=== PATIENT | female | born 1970 | race Caucasian/White ===

== ENCOUNTER → 2024-11-01 13:14 | Outpatient (CLI) | payer OTHER, SELFPAY ==
[2024-11-01 13:44] LABS: Add Manual Diff / Slide Review NO; Basophils Absolute Auto 0 /uL (0-100); Basophils Percent Auto 0.7 % (0-2); Eosinophils Absolute Auto 100 /uL (0-450); Hematocrit 42.7 % (36-46); Hemoglobin 14.1 g/dL (12.0-16.0); Lymphocytes Absolute Auto 2200 /uL (1100-4500); Lymphocytes Percent Auto 43.3 % (25-40); Mean Corpuscular HGB Conc 33.1 % (30-36); Mean Corpuscular Hemoglobin 29.7 PG (26-34); Mean Corpuscular Volume 89.7 fL (80-100); Monocytes Absolute Auto 400 /uL (0-900); Monocytes Percent Auto 7.3 % (3-14); Neutrophils Absolute Auto 2400 /uL (1500-7000); Neutrophils Percent Auto 46.7 % (50-75); Platelet Count 239 X10^3/uL (150-400); Red Blood Cell Count 4.76 X10^6/uL (4.0-5.2); Red Cell Distribution Width 13.8 % (11.6-14.8); White Blood Cell Count 5.2 X10^3/uL (4.5-11.0)
[2024-11-01 14:28] LABS: Alanine Aminotransferase 32 IU/L (<35); Albumin 4.5 g/dL (3.5-5.0); Albumin Globulin Ratio 1.8 (1.0-2.8); Alkaline Phosphatase 118 U/L (38-126); Aspartate Aminotransferase 31 IU/L (14-36); BUN Creatinine Ratio 18.8 (6-22); Bilirubin Total 0.7 mg/dL (0.2-1.3); Blood Urea Nitrogen 16 mg/dL (7-17); Calcium 9.1 mg/dL (8.4-10.2); Carbon Dioxide 25 mmol/L (22-32); Chloride 106 mmol/L (98-107); Cholesterol 157 mg/dL (140-199); Estimated Glomerular Filt Rate > 60 mL/min (>60); Globulin 2.5 g/dL (1.7-4.1); Glucose 157 mg/dL (70-99); HDL Cholesterol 43 mg/dL (40-60); HEMOLYSIS < 15 (0-50); LDL Cholesterol Calculated 98 mg/dL (<100); Sodium 140 mmol/L (137-145); Triglycerides 82 mg/dL (35-150)
[2024-11-01 14:43] LABS: Creatinine Urine Random 74.21 mg/dL
[2024-11-01 14:45] LABS: Free T3, Triiodothyronine Free 2.55 pg/mL (2.77-5.27); Free T4, Direct Thyroxine 0.79 ng/dL (0.78-2.19)
[2024-11-01 14:51] LABS: Microalbumin Urine Random 4.6 mg/dL (0-1.6)
[2024-11-01 14:58] LABS: Thyroid Stimulating Hormone 11.1 uIU/mL (0.47-4.68)
== END ==
LOC: LAB 13:16
PROVIDERS: Referring Provider Student in an Organized Health Care Education/Training Program; Visit Provider Student in an Organized Health Care Education/Training Program
DX: E11.9 Type 2 diabetes mellitus without complications (principal); Z79.899 Other long term (current) drug therapy
CPT/HCPCS: 36415; 80053; 80061; 82043; 82570; 83036; 84439; 84443; 84481; 85025

== ENCOUNTER → 2025-01-13 18:40 | Outpatient (CLI) | payer OTHER, SELFPAY ==
--- NOTE | 2025-01-13 18:41 | DI.MRI.S_ITS ---
PROCEDURE: MR LUMBAR SPINE WO CON INDICATIONS: Numbness and tingling of lower extremitities, urinary incont TECHNIQUE: Noncontrast sagittal T1 spin echo and T2 fast echo, sagittal STIR, and T2 fast spin echo through the lumbar spine. In cases with scoliosis, additional coronal T2 fast spin echo may be performed. COMPARISON: None. FINDINGS: Image quality: Excellent. Alignment and Curvature: Trace retrolisthesis L4-L5. Bone Marrow: Marrow is of normal overall signal. No acute vertebral body compression fractures. Spinal Cord: Conus medullaris terminates at the L1 level. Visualized cord demonstrates normal signal and size. Paraspinous Soft Tissues: No paravertebral masses. Discs: Scattered disc desiccation moderate L4-5. T12-L1: No disc bulge, spinal stenosis or foraminal narrowing. L1-L2: No disc bulge, spinal stenosis or foraminal narrowing. Minimal epidural lipomatosis. L2-L3: Minimal disc without spinal stenosis. Minimal left foraminal narrowing. Minimal epidural lipomatosis. L3-L4: Minimal disc bulge with minimal canal narrowing. Minimal to mild left foraminal narrowing. Minimal epidural lipomatosis. L4-L5: Mild disc bulge with [id number] spinal stenosis. [id number] left and mild right foraminal narrowing with facet and ligamentum flavum hypertrophy. L5-S1: No disc bulge or spinal stenosis. Mild bilateral foraminal narrowing. IMPRESSION: Scattered early degenerative changes with foraminal narrowing most notable at L4-5 as above. Dictated by: Adilene St M.D. on 01/13/2025 at 20:18 Approved by: Adilene St M.D. on 01/13/2025 at 20:22
== END ==
LOC: MRI 18:41
PROVIDERS: Family Provider Student in an Organized Health Care Education/Training Program; PCP Student in an Organized Health Care Education/Training Program; Referring Provider Student in an Organized Health Care Education/Training Program; Visit Provider Student in an Organized Health Care Education/Training Program
DX: M47.816 Spondylosis without myelopathy or radiculopathy, lumbar region (principal); M48.061 Spinal stenosis, lumbar region without neurogenic claudication; R20.2 Paresthesia of skin; R32 Unspecified urinary incontinence
CPT/HCPCS: 72148

== ENCOUNTER 2025-03-10 07:30 | Outpatient (RCR) | payer OTHER, SELFPAY ==
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
--- NOTE | 2025-01-06 17:22 | PT.OPPOC ---
Physical, Occupational & Speech Therapy At [facility] Current Diagnoses Low back pain, unspecified (01/06/25) Visit Care Team Role Provider Type Tameka Abdi MD Attending Provider Physician Family Provider Primary Care Provider Referring Provider Specialty: Family Practice Obstetrics Address: [address] [place] [address], [id number] Email: [email or web address] Plan Of Care PT-OP-T Assessment and Plan Start: 01/06/25 13:10 Freq: Status: Active Protocol: Document 01/06/25 13:11 BL (Rec: 01/06/25 13:46 BL Laptop) Physical Therapy Assessment Rehab Potential Rehabilitation Good Potential Evaluation Complexity Number of Personal 1-2 Factors/ Comorbidities Number of Body 3 Systems Impaired Clinical Evolving Presentation at Evaluation Impairments Impairments Activity Tolerance,Balance,Functional Activities, Functional Mobility,Gait,Pain,Posture,ROM,Sensation, Soft Tissue Mobility,Strength,Transfers Goals Three Senior Database Programmer Goal (LTG) Pt will demo decreased pain when going up and down steps to 2/10 or better by DC for improved functional mobility. Two Detention Goal (LTG) Pt will demo improved hip extension strength to 4+/5 by DC for improved functional stability with ADLs by DC. One Short Term Goal (STG Pt will be ind with HEP within 2 visits in order to ) progress toward group home therapy goals outside of therapy sessions. Detention Goal (LTG) Pt will demo improved Oswestry score to 30% disability or better by DC for improved quality of life. Assessment Summary Assessment Pt presents to the clinic this date with long standing low back pain, pt reports she had a fall about a year ago and since the pain has been more sever. Pt demos decreased hip and core strength this date as well as decreased lumbar mobility, L hip stiffness through all ranges. Pt demos positive slump test. Pt will likely benefit from skilled Physical Therapy intervention for strength and endurance training to improve functional mobility. Due to concerns for possible bladder involvement with changes noted over the past and no reports of recent imaging, pt recommended to contact PCP for additional imaging to clear possible neural involvement or spinal concerns. Physical Therapy Plan Frequency and Duration Frequency of 2x/Week Treatment Duration of 12 treatment (weeks) Plan of Care Start 01/06/25 Date Plan of Care End 03/31/25 Date Therapeutic Interventions Therapeutic Balance Training,Coordination Training,Gait Training, Interventions Home Exercise Program,Joint Mobilizations,Manual Therapy,Neuromuscular Re-education,Orthotic/Prosthetic Management,Patient/Caregiver Education,Self-Care/Home Management,Sensory Integration,Soft Tissue Mobilization ,Taping,Therapeutic Activities,Therapeutic Exercises Modalities Cold Pack/Ice Massage,Electric Stimulation,Hot Packs, Infrared Therapy,Iontophoresis,Traction- Mechanical, Ultrasound Next Visit Focus/Plan Next Note Type Treatment Note Next Visit Plan Advance HEP for LE strength and stability, core stability, manual therapy for lumbar tissue mobility. Plan of Care Dates Plan of Care Start Date 01/06/25 Plan of Care End Date 03/31/25 Electronically Signed by: Juni Pickering, PT 01/06/25 6500 If you are in agreement with this Plan of Care, please return a signed and dated copy. I have reviewed this Plan of Care and certify that the skilled therapy services above are required to meet the patient?s needs. Physician Signature Date Printed Name and Credentials Clinical Instructor Signature Printed Name and Credentials
--- NOTE | 2025-01-12 18:04 | PT.OTN ---
Current Diagnoses Low back pain, unspecified (01/12/25) Physical Therapy Treatment Note PT-OP-A Visit Information Start: 01/06/25 13:10 Freq: Status: Active Protocol: Document 01/12/25 17:01 BL (Rec: 01/12/25 18:04 BL Laptop) Out-Patient Physical Therapy Visit Information Visit Information Visit Type Treatment Note Visit Start Time 17:00 Visit Stop Time 17:40 Visit Number (2) 2/10 (PN by 02/06/25) Number of LIEUTENANT SHIFT SUPERVISOR Visits 0 PT-OP-C Subjective Start: 01/06/25 13:10 Freq: Status: Active Protocol: Document 01/12/25 17:01 BL (Rec: 01/12/25 18:04 BL Laptop) OP-PT Subjective Patient Comments Patient Comments Pt presents to the clinic this date and reports she is feeling pretty sore today, reports she was sick earlier in the week and spent a good part of her day in her bed due to this pain. PT-OP-D Balance Start: 01/06/25 13:10 Freq: Status: Active Protocol: Document 01/06/25 13:11 BL (Rec: 01/06/25 13:46 BL Laptop) Balance Tests Single Limb Standing Single Limb- Right 10 Single Limb- Left 8 PT-OP-H Neuro Start: 01/06/25 13:10 Freq: Status: Active Protocol: Document 01/06/25 13:11 BL (Rec: 01/06/25 13:46 BL Laptop) Sensation Evaluation Comments Summary Comments Pt reports occasional numbness tonja but can be worse on L side. unsure if this is from her back or diabetes. Coordination Evaluation Comments Coordination pt denies changes in coordination. Comments PT-OP-J Posture/Palpation/Skin Start: 01/06/25 13:10 Freq: Status: Active Protocol: Document 01/06/25 13:11 BL (Rec: 01/06/25 13:46 BL Laptop) Posture Evaluation Comments Posture Comments Pt sits with posterior pelvic tilt and lateral lean on arm rests L and R throughout session. Pt is R hand dominate, demos L shoulder drop. Slight R rib hump noted with forward flexion. PT-OP-K Range of Motion Start: 01/06/25 13:10 Freq: Status: Active Protocol: Document 01/06/25 13:11 BL (Rec: 07/11/25 13:46 BL Laptop) Lumbar Spine Range of Motion Lumbar Spine Active Percentage Testing Position Standing Flexion 75 Extension 50 Rotation Left 100 Rotation Right 100 Lateral Flexion Left 75 Lateral Flexion 50 Right Comments PT reports feeling a L sided stretch with R lat flexion and R rotation. PT-OP-L Special Tests Start: 01/06/25 13:10 Freq: Status: Active Protocol: Document 01/06/25 13:11 BL (Rec: 01/06/25 13:46 BL Laptop) Special Tests Lumbar Spine Special Tests Anastacio Test Results positive Comments reproduction on L sided back pain with L Leg in ext, increased quad tension Straight Leg Raise Test Results negative Comments L side increased tightness noted Slump Test Results positive on L Comments tingling noted in L foot PT-OP-M Strength Start: 01/06/25 13:10 Freq: Status: Active Protocol: Document 01/06/25 13:11 BL (Rec: 01/06/25 14:02 BL Laptop) Hip Strength Hip Manual Muscle Testing Right Flexion (L2) 4+ Good+ Extension (S1) 4 Good Abduction 5 Normal Adduction 5 Normal External Rotation 4+ Good+ Internal Rotation 4+ Good+ Left Flexion (L2) 4 Good Extension (S1) 4 Good Abduction 4+ Good+ Adduction 4+ Good+ External Rotation 4 Good Internal Rotation 4 Good Knee Strength Knee Manual Muscle Testing Right Flexion (S2) 4+ Good+ Extension (L3) 5 Normal Left Flexion (S2) 4+ Good+ Extension (L3) 4+ Good+ Ankle/Foot Strength Ankle and Foot Manual Muscle Testing Right Dorsiflexion (L4) 5 Normal Plantarflexion (S1) 5 Normal Left Dorsiflexion (L4) 4+ Good+ Plantarflexion (S1) 4+ Good+ PT-OP-Q Treatments Start: 01/06/25 13:10 Freq: Status: Active Protocol: Document 01/12/25 17:01 BL (Rec: 01/12/25 18:04 BL Laptop) Therapeutic Exercises Supine Exercises ROM Supine Exercise Name PN, LTR, SKTC, Sciatic Floss, Anastacio st Comments 10x, 30sec x 3 PT-OP-T Assessment and Plan Start: 01/06/25 13:10 Freq: Status: Active Protocol: Document 01/12/25 17:01 BL (Rec: 07/17/25 18:04 BL Laptop) Physical Therapy Assessment Goals Three Senior Living Goal (LTG) Pt will demo decreased pain when going up and down steps to 2/10 or better by DC for improved functional mobility. Two Senior Living Goal (LTG) Pt will demo improved hip extension strength to 4+/5 by DC for improved functional stability with ADLs by DC. One Short Term Goal (STG Pt will be ind with HEP within 2 visits in order to ) progress toward residential therapy goals outside of therapy sessions. Captain/Airline Pilot Goal (LTG) Pt will demo improved Oswestry score to 30% disability or better by DC for improved quality of life. Assessment Summary Assessment Pt tolerates session well, able to advance LE mobility and lumbar mobility HEP with good symptom relief following. Physical Therapy Plan Frequency and Duration Frequency of 2x/Week Treatment Duration of 12 treatment (weeks) Plan of Care Start 01/06/25 Date Plan of Care End 03/31/25 Date Next Visit Focus/Plan Next Note Type Treatment Note Next Visit Plan Advance HEP for LE strength and stability, core stability, manual therapy for lumbar tissue mobility.
--- NOTE | 2025-01-25 15:59 | PT.OTN ---
Current Diagnoses Low back pain, unspecified (01/25/25) Physical Therapy Treatment Note PT-OP-A Visit Information Start: 01/06/25 13:10 Freq: Status: Active Protocol: Document 01/25/25 15:19 BL (Rec: 01/25/25 15:59 BL Laptop) Out-Patient Physical Therapy Visit Information Visit Information Visit Type Treatment Note Visit Start Time 15:15 Visit Stop Time 15:55 Visit Number (3) 3/10 (PN by 02/06/25) Number of TRANSPORTATION BROKER Visits 0 PT-OP-C Subjective Start: 01/06/25 13:10 Freq: Status: Active Protocol: Document 01/25/25 15:19 BL (Rec: 01/25/25 15:59 BL Laptop) OP-PT Subjective Patient Comments Patient Comments Pt presents to the clinic this date and reports she is doing well, states overall demos improved symptoms but reports mornings are considerably more difficult. PT-OP-D Balance Start: 01/06/25 13:10 Freq: Status: Active Protocol: Document 01/06/25 13:11 BL (Rec: 01/06/25 13:46 BL Laptop) Balance Tests Single Limb Standing Single Limb- Right 10 Single Limb- Left 8 PT-OP-H Neuro Start: 01/06/25 13:10 Freq: Status: Active Protocol: Document 01/06/25 13:11 BL (Rec: 01/06/25 13:46 BL Laptop) Sensation Evaluation Comments Summary Comments Pt reports occasional numbness tonja but can be worse on L side. unsure if this is from her back or diabetes. Coordination Evaluation Comments Coordination pt denies changes in coordination. Comments PT-OP-J Posture/Palpation/Skin Start: 01/06/25 13:10 Freq: Status: Active Protocol: Document 01/06/25 13:11 BL (Rec: 01/06/25 13:46 BL Laptop) Posture Evaluation Comments Posture Comments Pt sits with posterior pelvic tilt and lateral lean on arm rests L and R throughout session. Pt is R hand dominate, demos L shoulder drop. Slight R rib hump noted with forward flexion. PT-OP-K Range of Motion Start: 01/06/25 13:10 Freq: Status: Active Protocol: Document 01/06/25 13:11 BL (Rec: 01/06/25 13:46 BL Laptop) Lumbar Spine Range of Motion Lumbar Spine Active Percentage Testing Position Standing Flexion 75 Extension 50 Rotation Left 100 Rotation Right 100 Lateral Flexion Left 75 Lateral Flexion 50 Right Comments PT reports feeling a L sided stretch with R lat flexion and R rotation. PT-OP-L Special Tests Start: 01/06/25 13:10 Freq: Status: Active Protocol: Document 01/06/25 13:11 BL (Rec: 01/06/25 13:46 BL Laptop) Special Tests Lumbar Spine Special Tests Anastacio Test Results positive Comments reproduction on L sided back pain with L Leg in ext, increased quad tension Straight Leg Raise Test Results negative Comments L side increased tightness noted Slump Test Results positive on L Comments tingling noted in L foot PT-OP-M Strength Start: 01/06/25 13:10 Freq: Status: Active Protocol: Document 01/06/25 13:11 BL (Rec: 01/06/25 14:02 BL Laptop) Hip Strength Hip Manual Muscle Testing Right Flexion (L2) 4+ Good+ Extension (S1) 4 Good Abduction 5 Normal Adduction 5 Normal External Rotation 4+ Good+ Internal Rotation 4+ Good+ Left Flexion (L2) 4 Good Extension (S1) 4 Good Abduction 4+ Good+ Adduction 4+ Good+ External Rotation 4 Good Internal Rotation 4 Good Knee Strength Knee Manual Muscle Testing Right Flexion (S2) 4+ Good+ Extension (L3) 5 Normal Left Flexion (S2) 4+ Good+ Extension (L3) 4+ Good+ Ankle/Foot Strength Ankle and Foot Manual Muscle Testing Right Dorsiflexion (L4) 5 Normal Plantarflexion (S1) 5 Normal Left Dorsiflexion (L4) 4+ Good+ Plantarflexion (S1) 4+ Good+ PT-OP-Q Treatments Start: 01/06/25 13:10 Freq: Status: Active Protocol: Document 01/25/25 15:19 BL (Rec: 01/25/25 15:59 BL Laptop) Therapeutic Exercises Supine Exercises Stability Supine Exercise Name Pelivic tilt with marching Comments cues for finger placement above ASIS ROM Supine Exercise Name PN, LTR, SKTC, Sciatic Floss, Anastacio st Comments 10x, 30sec x 3 posture Supine Exercise Name Pt educated on spinal stability. Prone Exercises strength Prone Exercise Name prone press up, hip extension SL Resistance 0# Comments 1x15 Sidelying Exercises strength Sidelying Exercise clamshells with IR Name Equipment Used lvl 1 band Comments 1x 15 PT-OP-T Assessment and Plan Start: 01/06/25 13:10 Freq: Status: Active Protocol: Document 01/25/25 15:19 BL (Rec: 01/25/25 15:59 BL Laptop) Physical Therapy Assessment Goals Three Communicable Disease Specialist Goal (LTG) Pt will demo decreased pain when going up and down steps to 2/10 or better by DC for improved functional mobility. Two Communicable Disease Specialist Goal (LTG) Pt will demo improved hip extension strength to 4+/5 by DC for improved functional stability with ADLs by DC. One Short Term Goal (STG Pt will be ind with HEP within 2 visits in order to ) progress toward halfway therapy goals outside of therapy sessions. Retirement Goal (LTG) Pt will demo improved Oswestry score to 30% disability or better by DC for improved quality of life. Assessment Summary Assessment Pt tolerates session well, advance core strengthening and and hip extension activation. Physical Therapy Plan Frequency and Duration Frequency of 2x/Week Treatment Duration of 12 treatment (weeks) Plan of Care Start 01/06/25 Date Plan of Care End 03/31/25 Date Next Visit Focus/Plan Next Note Type Treatment Note Next Visit Plan Advance HEP for LE strength and stability, core stability, manual therapy for lumbar tissue mobility.
--- NOTE | 2025-01-27 07:42 | PT-OP ANOTE ---
Phoned patient regarding no show. Left message regarding no show policy, also left front office attendant phone number and date and time of next scheduled physical therapy appointment.
--- NOTE | 2025-02-01 08:16 | PT.OTN ---
Current Diagnoses Low back pain, unspecified (02/01/25) Physical Therapy Treatment Note PT OP: Lower Back/Lower Extremity Start: 02/01/25 07:28 Freq: Status: Active Protocol: Document 02/01/25 07:30 BL (Rec: 02/01/25 08:16 BL Laptop) Out-Patient Physical Therapy Visit Information Visit Information Visit Type Treatment Note Visit Start Time 07:30 Visit Stop Time 08:10 Visit Number (4) 4/10 (PN by 02/06/25) Number of ELECTRIC ORGAN CHECKER Visits 0 OP-PT Subjective Patient Comments Patient Comments Pt presents to the clinic this date and reports she is doing well, overall slight improvement in symptoms. States mornings are still difficult, she also ordered a new office chair this date. Therapeutic Exercises Supine Exercises Stability Supine Exercise Name PN with 90/90 bridge Comments 2x10 ROM Supine Exercise Name PN, LTR, SKTC, Sciatic Floss, Anastacio st Comments 10x, 30sec x 3 Prone Exercises ROM Prone Exercise Name Cat/Cow strength Prone Exercise Name prone press up, hip extension SL, bird dog, fire hydrant Resistance lvl 3 band Comments 2x1- Physical Therapy Assessment Goals Three Fpc Goal (LTG) Pt will demo decreased pain when going up and down steps to 2/10 or better by DC for improved functional mobility. Two Manager Multimedia Goal (LTG) Pt will demo improved hip extension strength to 4+/5 by DC for improved functional stability with ADLs by DC. One Short Term Goal (STG Pt will be ind with HEP within 2 visits in order to ) progress toward intermediate therapy goals outside of therapy sessions. Fpc Goal (LTG) Pt will demo improved Oswestry score to 30% disability or better by DC for improved quality of life. Assessment Summary Assessment Pt tolerates session well, advance core strengthening and and hip extension activation this date with improved control. cues for spinal rotation. Physical Therapy Plan Frequency and Duration Frequency of 2x/Week Treatment Duration of 12 treatment (weeks) Plan of Care Start 01/06/25 Date Plan of Care End 03/31/25 Date Next Visit Focus/Plan Next Note Type Treatment Note Next Visit Plan Advance HEP for LE strength and stability, core stability, manual therapy for lumbar tissue mobility.
--- NOTE | 2025-02-07 08:09 | PT.OTN ---
Current Diagnoses Low back pain, unspecified (02/07/25) Physical Therapy Treatment Note PT OP: Lower Back/Lower Extremity Start: 02/01/25 07:28 Freq: Status: Active Protocol: Document 02/07/25 07:33 BL (Rec: 02/07/25 08:08 BL Laptop) Out-Patient Physical Therapy Visit Information Visit Information Visit Type Progress Note Visit Start Time 07:30 Visit Stop Time 08:05 Visit Number (5) 5/10 Number of BUILDING INSULATION INSTALLER Visits 0 Progress Note Due 03/09/25 Precautions Precautions Latex Allergy OP-PT Subjective Patient Comments Patient Comments Pt presents to the clinic this date and reports she continues to notice improvement in her symptoms. States mornings are better. Reports she will need to leave a little early today. Therapeutic Exercises Supine Exercises Stability Supine Exercise Name PN with 90/90 bridge w/band, PN 90/90 taps, PN 90/90 leg fall outs Resistance plum Comments 2x10 ROM Supine Exercise Name PN, LTR, SKTC, Sciatic Floss, Anastacio st Comments 10x, 30sec x 3 Prone Exercises strength Prone Exercise Name prone press up, hip extension SL, Resistance lvl 3 band Comments 2x10, held quadruped activity due to R shoulder pain. Sidelying Exercises strength Sidelying Exercise clamshells with IR Name Equipment Used lvl 1 band Comments 1x 15 Standing Exercises strength Standing Exercise lateral walking Name Resistance plum band Physical Therapy Assessment Goals Three Residential Goal (LTG) Pt will demo decreased pain when going up and down steps to 2/10 or better by DC for improved functional mobility. (progressing) 02/06/25: Pt reports 2.5/10 pain . Two Supervisor Parking Lot Goal (LTG) Pt will demo improved hip extension strength to 4+/5 by DC for improved functional stability with ADLs by DC. (progressing) 02/06/25: pt demos 4/5 hip extension, 4+/5 L hip abduction, 4/5 R hip abduction. One Short Term Goal (STG Pt will be ind with HEP within 2 visits in order to ) progress toward skilled nursing therapy goals outside of therapy sessions. (Goal Met) Residential Goal (LTG) Pt will demo improved Oswestry score to 30% disability or better by DC for improved quality of life. ( progressing) 02/06/25: Pt reports improvement in ADLS. Assessment Summary Assessment Pt continues to demo improvement in symptoms with stretching and core strengthening. Pt continues to lack hip strength and core stability with ADLS causing pain and will continue to benefit from skilled Physical Therapy for further strength and endurance training. Physical Therapy Plan Frequency and Duration Frequency of 2x/Week Treatment Duration of 12 treatment (weeks) Plan of Care Start 01/06/25 Date Plan of Care End 03/31/25 Date Next Visit Focus/Plan Next Note Type Treatment Note Next Visit Plan Advance HEP for LE strength and stability, core stability, manual therapy for lumbar tissue mobility.
--- NOTE | 2025-02-22 08:25 | PT.OTN ---
Addendum entered and electronically signed by Alida Recinos 02/24/25 07:25: Start time 7:31 not 7:01 Original Note: Current Diagnoses Low back pain, unspecified (02/22/25) Physical Therapy Treatment Note PT OP: Lower Back/Lower Extremity Start: 02/01/25 07:28 Freq: Status: Active Protocol: Document 02/22/25 07:28 AB (Rec: 02/22/25 08:25 AB [id number]) Out-Patient Physical Therapy Visit Information Visit Information Visit Type Treatment Note Visit Note Access Code [id number] Visit Start Time 07:01 Visit Stop Time 08:14 Visit Number (6) 2/10 Number of FIELD CANE SCALE CLERK Visits 1 Progress Note Due 03/09/25 Precautions Precautions Latex Allergy OP-PT Subjective Patient Comments Patient Comments Patient rates pain 2-3/10 L lower low back into glute/ reports she was putting together furniture. Therapeutic Exercises Supine Exercises hip stretches Supine Exercise Name 1. piriformis ( knee to opp shoulder) 2. Mod Anastacio Side bilateral Resistance HEP Equipment Used towel roll a groin L piriformis Reps/Minutes 1. 60 sec X 2 L, X1 R 2. 60 sec each LE with AROM knee flexion Comments Verbal cues Standing Exercises sit to stand Standing Exercise HEP Name Side bilateral Reps/Minutes X 2 and X 5 Comments Pt ed mech sit to stand and self tactile cues for hip hinge Manual Therapy Treatment Consent Patient gave verbal Yes consent for manual treatment Soft Tissue Mobilization Lumbar Body Location LS paraspinals Mobilization Type Sustained Pressure Intensity/Depth Moderate Body Position Sidelying L hip Body Location B piriformis/glute illiopsoas Mobilization Type Cross-Friction,Oscillations Intensity/Depth Moderate Body Position Hooklying Manual Techniques R AI Left PI Reps/Duration 6X 6 sec pubic shotgun and MET for R AI L PI Physical Therapy Assessment Goals Three Nursing Home Goal (LTG) Pt will demo decreased pain when going up and down steps to 2/10 or better by DC for improved functional mobility. (progressing) 02/06/25: Pt reports 2.5/10 pain . Two Nursing Home Goal (LTG) Pt will demo improved hip extension strength to 4+/5 by DC for improved functional stability with ADLs by DC. (progressing) 02/06/25: pt demos 4/5 hip extension, 4+/5 L hip abduction, 4/5 R hip abduction. One Short Term Goal (STG Pt will be ind with HEP within 2 visits in order to ) progress toward terminal block assembler therapy goals outside of therapy sessions. (Goal Met) Nursing Home Goal (LTG) Pt will demo improved Oswestry score to 30% disability or better by DC for improved quality of life. ( progressing) 02/06/25: Pt reports improvement in ADLS. Assessment Summary Assessment Patient able to transfer sit to stand with reports of decreased pain and adequate hip hinge end of session. Marisela reports feeling good end of session. Physical Therapy Plan Frequency and Duration Frequency of 2x/Week Treatment Duration of 12 treatment (weeks) Plan of Care Start 01/06/25 Date Plan of Care End 03/31/25 Date Next Visit Focus/Plan Next Note Type Treatment Note Next Visit Plan Advance HEP for LE strength and stability, core stability, manual therapy for lumbar tissue mobility. Possibly prone hip ext( standing trunk resting on mat at counter height)
--- NOTE | 2025-02-24 09:20 | PT.OTN ---
Current Diagnoses Low back pain, unspecified (02/24/25) Physical Therapy Treatment Note PT OP: Lower Back/Lower Extremity Start: 02/01/25 07:28 Freq: Status: Active Protocol: Document 02/24/25 07:23 AB (Rec: 02/24/25 08:26 AB [id number]) Out-Patient Physical Therapy Visit Information Visit Information Visit Type Treatment Note Visit Note Access Code [email or web address] Visit Start Time 07:30 Visit Stop Time 08:15 Visit Number (7) 3/10 Number of PRODUCTION POSTING CLERK Visits 1 Progress Note Due 03/09/25 Precautions Precautions Latex Allergy OP-PT Subjective Patient Comments Patient Comments Marisela reports she is better, noticed her chair in her office is not a good chair for her. Patient rates pain 2/10 lumbar spine. Therapeutic Exercises Supine Exercises hip stretches Supine Exercise Name 1. piriformis ( knee to opp shoulder) Side bilateral Resistance HEP Reps/Minutes 60 sec each LE Comments Verbal cues, monitored for groin pain Standing Exercises stretches Standing Exercise 1. L stretch 2. Cat cow on hands3. cat cow on forearms Name Equipment Used HEP Reps/Minutes X 5 each Comments verbal and visual cues strength Standing Exercise 1. bird dog HEP 2. hip ext trunk resting on raised mat Name on pillows HEP Reps/Minutes X 10 Comments verbal and visual cues Therapeutic Activity Therapeutic Activity seated positioning Reps/Minutes 9 min Comments seated with towel roll under ischial tub to inc ant pelvic tilt when seated training with 1/2 towel roll also end of session breathing from diaphragm in this position with additional pillow for lumbar support Manual Therapy Treatment Soft Tissue Mobilization Lumbar Body Location LS paraspinals B Mobilization Type Sustained Pressure Intensity/Depth Moderate Body Position Sidelying L hip Body Location B piriformis Mobilization Type Cross-Friction,Oscillations Intensity/Depth Moderate Body Position Hooklying Physical Therapy Assessment Goals Three Usp Goal (LTG) Pt will demo decreased pain when going up and down steps to 2/10 or better by DC for improved functional mobility. (progressing) 02/06/25: Pt reports 2.5/10 pain . Two Usp Goal (LTG) Pt will demo improved hip extension strength to 4+/5 by DC for improved functional stability with ADLs by DC. (progressing) 02/06/25: pt demos 4/5 hip extension, 4+/5 L hip abduction, 4/5 R hip abduction. One Short Term Goal (STG Pt will be ind with HEP within 2 visits in order to ) progress toward long term care administrator therapy goals outside of therapy sessions. (Goal Met) Chyron Operator Goal (LTG) Pt will demo improved Oswestry score to 30% disability or better by DC for improved quality of life. ( progressing) 02/06/25: Pt reports improvement in ADLS. Assessment Summary Assessment Patient reports feeling a little sore end of session. Good return demonstration for additions to HEP. Physical Therapy Plan Frequency and Duration Frequency of 2x/Week Treatment Duration of 12 treatment (weeks) Plan of Care Start 01/06/25 Date Plan of Care End 03/31/25 Date Next Visit Focus/Plan Next Note Type Treatment Note Next Visit Plan Advance HEP for LE strength and stability, core stability, manual therapy for lumbar tissue mobility. Possibly prone hip ext( standing trunk resting on mat at counter height)
--- NOTE | 2025-03-03 09:26 | PT.OTN ---
Current Diagnoses Low back pain, unspecified (03/03/25) Physical Therapy Treatment Note PT OP: Lower Back/Lower Extremity Start: 02/01/25 07:28 Freq: Status: Active Protocol: Document 03/03/25 07:31 AB (Rec: 03/03/25 08:19 AB [id number]) Out-Patient Physical Therapy Visit Information Visit Information Visit Type Treatment Note Visit Note [id number] Visit Start Time 07:34 Visit Stop Time 08:15 Visit Number [phone] Number of CAN HANDLER Visits 3 Progress Note Due 03/09/25 Precautions Precautions Latex Allergy OP-PT Subjective Patient Comments Patient Comments Patient reports she is the same hip has been wackadoodle 10/06. Patient reports she had more patient' s this week ie more sitting. Therapeutic Exercises Supine Exercises hip stretches Supine Exercise Name 1. piriformis ( knee to opp shoulder)2. Modthomas Side bilateral Resistance HEP Reps/Minutes 60 sec X 2 L LE X 1 R LE Comments Verbal cues, monitored for groin pain Standing Exercises Pallof press Standing Exercise HEP Name Side bilateral Resistance Level 3 latex free Reps/Minutes X 15 each side Comments verbal cues strength Standing Exercise 1. bird dog HEP 2. hip ext trunk resting on raised mat Name on pillows HEP Reps/Minutes 1. X12 2. X 10 Comments VC for abdominal bracing Manual Therapy Treatment Consent Patient gave verbal Yes consent for manual treatment Soft Tissue Mobilization L hip Body Location L piriformis/ glut illiopsoas Mobilization Type Cross-Friction,Oscillations Intensity/Depth Moderate Body Position Hooklying Joint Mobilizations L hip Joint AP med to lat Direction IV Body Position Hooklying Reps/Duration 3X10 Manual Techniques R AI Left PI Reps/Duration 6X 6 sec pubic shotgun and MET for R AI L PI Physical Therapy Assessment Goals Three Parts Specialist Goal (LTG) Pt will demo decreased pain when going up and down steps to 2/10 or better by DC for improved functional mobility. (progressing) 02/06/25: Pt reports 2.5/10 pain . Two Assisted Goal (LTG) Pt will demo improved hip extension strength to 4+/5 by DC for improved functional stability with ADLs by DC. (progressing) 02/06/25: pt demos 4/5 hip extension, 4+/5 L hip abduction, 4/5 R hip abduction. One Short Term Goal (STG Pt will be ind with HEP within 2 visits in order to ) progress toward rn long term care therapy goals outside of therapy sessions. (Goal Met) Assisted Goal (LTG) Pt will demo improved Oswestry score to 30% disability or better by DC for improved quality of life. ( progressing) 02/06/25: Pt reports improvement in ADLS. Assessment Summary Assessment Patient rates hip pain / end of session. Increased verbal cues for UE position for Pallof press. Physical Therapy Plan Frequency and Duration Frequency of 2x/Week Treatment Duration of 12 treatment (weeks) Plan of Care Start 01/06/25 Date Plan of Care End 03/31/25 Date Therapeutic Interventions Therapeutic Balance Training,Coordination Training,Gait Training, Interventions Home Exercise Program,Joint Mobilizations,Manual Therapy,Neuromuscular Re-education,Orthotic/Prosthetic Management,Patient/Caregiver Education,Self-Care/Home Management,Sensory Integration,Soft Tissue Mobilization ,Taping,Therapeutic Activities,Therapeutic Exercises Modalities Cold Pack/Ice Massage,Electric Stimulation,Hot Packs, Infrared Therapy,Iontophoresis,Traction- Mechanical, Ultrasound Next Visit Focus/Plan Next Note Type Treatment Note Next Visit Plan Advance HEP for LE strength and stability, core stability, manual therapy for lumbar tissue mobility. Assess leia to Pallof press/ ? possibly glut med activation for pain and trunk control with ambulation, review Pallof press
--- NOTE | 2025-03-08 08:31 | PT.OTN ---
Current Diagnoses Low back pain, unspecified (03/08/25) Bicipital tendinitis, right shoulder (03/08/25) Physical Therapy Treatment Note PT OP: Lower Back/Lower Extremity Start: 02/01/25 07:28 Freq: Status: Active Protocol: Document 03/08/25 07:24 AB (Rec: 03/08/25 07:50 AB [id number]) Out-Patient Physical Therapy Visit Information Visit Information Visit Type Treatment Note Visit Note [id number] Visit Start Time 07:31 Visit Stop Time 08:15 Visit Number (9) 5/10 Number of PROGRAM ADVOCATE Visits 4 Progress Note Due 03/09/25 Precautions Precautions Latex Allergy OP-PT Subjective Patient Comments Patient Comments Patient reports she is mostly the same, rates pain 2/10 start of session. Therapeutic Exercises Supine Exercises chin tuck with head lift Supine Exercise Name HEP Reps/Minutes 7 sec X 5 Comments verbal cues hip stretches Supine Exercise Name 1. piriformis ( knee to opp shoulder)2. Mod claudy Side bilateral Resistance HEP Reps/Minutes 60 sec each LE each stretch Comments Verbal cues, monitored for groin pain Prone Exercises strength Prone Exercise Name bird dog HEP review revision of hold time Comments counter plank position 7 sec X 10 VC to inc hold to 7 sec Sidelying Exercises strength Sidelying Exercise HEP Name Side bilateral Comments 7 sec X 5 Verbal and visual cues Standing Exercises glute med activation Standing Exercise isometric Name Side bilateral Reps/Minutes one min each LE Comments verbal cues Pallof press Standing Exercise HEP Name Side bilateral Resistance Level 3 latex free Reps/Minutes X 15 each side Comments verbal cues sit to stand Standing Exercise HEP Name Side bilateral Reps/Minutes X 2 and X 5 Comments [facility] stand and self tactile cues for hip hinge strength Standing Exercise 1. bird dog HEP 2. hip ext trunk resting on raised mat Name on pillows HEP Reps/Minutes 1. X12 2. X 10 Comments VC for abdominal bracing Manual Therapy Treatment Consent Patient gave verbal Yes consent for manual treatment Soft Tissue Mobilization Lumbar Body Location LS paraspinals B Mobilization Type Sustained Pressure Intensity/Depth Moderate Body Position Sidelying L hip Body Location B piriformis/ glut illiopsoas Mobilization Type Cross-Friction,Rolling Intensity/Depth Moderate Body Position Hooklying Joint Mobilizations L hip Joint AP med to lat Direction IV Body Position Hooklying Reps/Duration 3X10 Manual Techniques R AI Left PI Reps/Duration 6X 6 sec pubic shotgun and MET for R AI L PI Physical Therapy Assessment Goals Three Scrub Woman Goal (LTG) Pt will demo decreased pain when going up and down steps to 2/10 or better by DC for improved functional mobility. (progressing) 02/06/25: Pt reports 2.5/10 pain . Two Fci Goal (LTG) Pt will demo improved hip extension strength to 4+/5 by DC for improved functional stability with ADLs by DC. (progressing) 02/06/25: pt demos 4/5 hip extension, 4+/5 L hip abduction, 4/5 R hip abduction. One Short Term Goal (STG Pt will be ind with HEP within 2 visits in order to ) progress toward terminal make up operator therapy goals outside of therapy sessions. (Goal Met) [facility]ci Goal (LTG) Pt will demo improved Oswestry score to 30% disability or better by DC for improved quality of life. ( progressing) 02/06/25: Pt reports improvement in ADLS. Assessment Summary Assessment Patient reports pain decreased to 1/10 end of session, Good form with chin tuck head lift exercise, core strengthening progression to HEP this session. Physical Therapy Plan Frequency and Duration Frequency of 2x/Week Treatment Duration of 12 treatment (weeks) Plan of Care Start 01/06/25 Date Plan of Care End 03/31/25 Date Next Visit Focus/Plan Next Note Type Progress Note Next Visit Plan Progress note due: Advance HEP for LE strength and stability, core stability, manual therapy for lumbar tissue mobility. Review Pallof press, Review hip hinge, progress squat/sit to stand to squat/sit to stand with LATEX FREE band vs HEP review. [ End ]
--- NOTE | 2025-03-10 07:57 | PT.OPDS ---
Current Diagnoses Low back pain, unspecified (03/10/25) Bicipital tendinitis, right shoulder (03/10/25) Visit Care Team Role Provider Type Tameka Abdi MD Attending Provider Physician Family Provider Primary Care Provider Referring Provider Specialty: Family Practice Obstetrics Address: [address] [place] [address], [id number] Email: [email or web address] Visit Number Visit Number (10) 12/06 Discharge Summary PT OP: Lower Back/Lower Extremity Start: 02/01/25 07:28 Freq: Status: Active Protocol: Document 03/10/25 07:31 BL (Rec: 03/10/25 07:57 BL Laptop) Out-Patient Physical Therapy Visit Information Visit Information Visit Type Discharge Summary Visit Start Time 07:30 Visit Stop Time 08:10 Visit Number (10) 12/06 Number of TANKER SERVICE ATTENDANT Visits 0 Progress Note Due 04/09/25 Precautions Precautions Latex Allergy OP-PT Subjective Patient Comments Patient Comments Pt presents to the clinic this date and reports she is doing well, states she feels she has made great progress and feels she is ready for DC this date. Patient Questionnaires Oswestry Low Back Index Oswestry Score 10% disability Hip Strength Hip Manual Muscle Testing Right Flexion (L2) 5 Normal Extension (S1) 5 Normal Abduction 5 Normal Adduction 5 Normal External Rotation 5 Normal Internal Rotation 5 Normal Left Flexion (L2) 5 Normal Extension (S1) 5 Normal Abduction 5 Normal Adduction 5 Normal External Rotation 5 Normal Internal Rotation 5 Normal Knee Strength Knee Manual Muscle Testing Right Flexion (S2) 5 Normal Extension (L3) 5 Normal Left Flexion (S2) 5 Normal Extension (L3) 5 Normal Therapeutic Exercises Supine Exercises hip stretches Supine Exercise Name 1. piriformis ( knee to opp shoulder)2. Mod claudy Side bilateral Resistance HEP Reps/Minutes 60 sec each LE each stretch Comments Verbal cues, monitored for groin pain Prone Exercises strength Prone Exercise Name bird dog HEP review revision of hold time Comments counter plank position 7 sec X 10 VC to inc hold to 7 sec Standing Exercises glute med activation Standing Exercise isometric Name Side bilateral Reps/Minutes one min each LE Comments verbal cues Physical Therapy Assessment Goals Three Usp Goal (LTG) Pt will demo decreased pain when going up and down steps to 2/10 or better by DC for improved functional mobility. 02/06/25: Pt reports 2.5/10 pain. 03/10/25: Goal Met, rates pain as 2/10 at worst Two Usp Goal (LTG) Pt will demo improved hip extension strength to 4+/5 by DC for improved functional stability with ADLs by DC. (progressing) 02/06/25: pt demos 4/5 hip extension, 4+/5 L hip abduction, 4/5 R hip abduction. 03/10/25: pt demos 5/5 hip strength this date. One Short Term Goal (STG Pt will be ind with HEP within 2 visits in order to ) progress toward care home therapy goals outside of therapy sessions. (Goal Met) Usp Goal (LTG) Pt will demo improved Oswestry score to 30% disability or better by DC for improved quality of life. (Goal Met ) 02/06/25: Pt reports improvement in ADLS. 03/10/25: pt demos 10% disability this date. Assessment Summary Assessment Pt has made great progress in skilled PT intervention, pt has met all therapy goals at this time and is adequate for DC at this time. Pt reviewed in HEP for core and hip strength and mobility this date with good carryover. Physical Therapy Plan Frequency and Duration Frequency of 2x/Week Treatment Duration of 12 treatment (weeks) Plan of Care Start 01/06/25 Date Plan of Care End 03/31/25 Date
== END 2025-03-14 08:44 | disposition home or self-care (01) ==
LOC: PHYS 07:30
PROVIDERS: Family Provider Student in an Organized Health Care Education/Training Program; PCP Student in an Organized Health Care Education/Training Program; Referring Provider Student in an Organized Health Care Education/Training Program; Visit Provider Student in an Organized Health Care Education/Training Program
DX: M54.50 Low back pain, unspecified (principal); M75.21 Bicipital tendinitis, right shoulder
CPT/HCPCS: 97110; 97112; 97140; 97162; 97530

== ENCOUNTER → 2025-03-16 12:58 | Outpatient (CLI) | payer OTHER, SELFPAY | LOC: PHYS 12:58 | PROVIDERS: Family Provider Student in an Organized Health Care Education/Training Program; PCP Student in an Organized Health Care Education/Training Program; Referring Provider Student in an Organized Health Care Education/Training Program; Visit Provider Student in an Organized Health Care Education/Training Program | DX: R20.0 Anesthesia of skin (principal) | CPT/HCPCS: 95886; 95909 ==